=== PATIENT | male | born 1960 | race Caucasian/White ===

== ENCOUNTER 2024-06-24 11:12 | Inpatient (IN) | payer MEDICAID ==
[~2024-06-24] VITALS: Ht 165.1 cm; Wt 81.6 kg
[2024-06-24 12:48] LABS: BASOPHILS # (AUTO) 0.1 K/uL (0.0-0.2); BASOPHILS % (AUTO) 0.8 % (0.0-2.0); EOSINOPHILS # (AUTO) 0.2 K/uL (0.0-0.7); EOSINOPHILS % (AUTO) 2.3 % (0.0-6.0); HEMATOCRIT 42 % (39-51); HEMOGLOBIN 14.3 g/dL (13.5-17.5); LYMPHOCYTES % (AUTO) 19.1 % (20.0-44.0); MEAN CORPUSCULAR HEMOGLOBIN 31 PG (26.0-33.0); MEAN CORPUSCULAR HGB CONC 34 g/dl (31.0-36.0); MEAN CORPUSCULAR VOLUME 90 fL (80-96); MONOCYTES # (AUTO) 0.8 K/uL (0.1-1.30); MONOCYTES % (AUTO) 7.7 % (2.0-12.0); NEUTROPHILS # (AUTO) 7.5 K/uL (1.8-8.9); NEUTROPHILS % (AUTO) 70.1 % (43.0-81.0); PLATELET COUNT (AUTO) 504 K/uL (150-450); RED BLOOD CELL COUNT(AUTO) 4.63 MIL/uL (4.5-6.0); RED CELL DISTRIBUTION WIDTH 13.6 % (11.5-15.0); WHITE BLOOD COUNT (AUTO) 10.7 K/uL (4.3-11.0)
[2024-06-24 13:06] LABS: CARBON DIOXIDE 25 mmol/L (21-32); CHLORIDE 99 mmol/L (98-107); CREATININE 1.3 mg/dL (0.6-1.3); GLUCOSE 103 mg/dL (74-106); POTASSIUM 3.9 mmol/L (3.5-5.1); SODIUM SERUM 135 mmol/L (136-145); UREA NITROGEN, BLOOD 21 mg/dL (7-18)
[2024-06-24 13:12] LABS: ALANINE AMINOTRANSFERASE 21 U/L (12-78); ALBUMIN 3.6 g/dL (3.4-5.0); ALKALINE PHOSPHATASE 111 U/L (46-116); ASPARTATE AMINOTRANSFERASE 21 U/L (15-37); BILIRUBIN,DIRECT 0.2 mg/dL (0.0-0.2); BILIRUBIN,TOTAL 0.9 mg/dL (0.2-1.0); TOTAL PROTEIN, SERUM 7.5 g/dL (6.4-8.2)
[2024-06-24 13:13] LABS: ACETAMINOPHEN <10 ug/ml (10-30); ALCOHOL, BLOOD < 3 mg/dL (0-10); SALICYLATE 0.8 mg/dL (2.8-20.0)
[2024-06-24] MEDS ORDERED: LORA-258 PO (14:04)
[2024-06-24] MEDS ORDERED: MAGN400O6 PO (14:04)
[2024-06-24] MEDS ORDERED: ATOR80TA PO (14:04)
[2024-06-24] MEDS ORDERED: DOCU100T2 PO (14:04)
[2024-06-24] MEDS ORDERED: TYL2T PO (14:04)
[2024-06-24] MEDS ORDERED: ACET-2030 PO (14:04)
[2024-06-24] MEDS ORDERED: AMLO5TAB4 PO (14:04)
[2024-06-24] MEDS ORDERED: ASPI-1169 PO (14:04)
[2024-06-24 14:27] LABS: APPEARANCE,URINE SLIGHTLY CLOUDY (CLEAR); BILIRUBIN,URINE NEGATIVE (NEGATIVE); BLOOD, URINE 1+ Ery/uL (NEGATIVE); COLOR,URINE YELLOW (YELLOW); KETONES,URINE NEGATIVE (NEGATIVE); LEUKOCYTE ESTERASE ,URINE NEGATIVE (NEGATIVE); NITRITE, URINE POSITIVE (NEGATIVE); PROTEIN,URINE NEGATIVE (NEGATIVE); UGLUCOSE NEGATIVE (NEGATIVE); UROBILINOGEN,URINE 0.2 EU/dL (0.2)
[2024-06-24 14:38] LABS: ADD URINE CULTURE YES; BACTERIA,URINE 2+ /HPF (None Seen); SQUAMOUS EPITHELIAL CELL,UR 0-2 /HPF (None Seen)
[2024-06-24 14:51] LABS: AMPHETAMINE, URINE NEGATIVE (NEGATIVE); BARBITURATE, URINE NEGATIVE (NEGATIVE); BENZODIAZEPINE, URINE NEGATIVE (NEGATIVE); COCCAINE, URINE NEGATIVE (NEGATIVE); OPIATE, URINE NEGATIVE (NEGATIVE); PHENCYCLIDINE SCREEN,URINE NEGATIVE (NEGATIVE)
[2024-06-24 14:53] LABS: CANNABINOID, URINE POSITIVE (NEGATIVE)
[2024-06-24] MEDS ORDERED: CEFTRIAXONE 1 G in IV D5W 50 ML IV ONE (15:00)
[2024-06-24] MEDS ORDERED: CIPROFLOXACIN HCL 250 MG TABLET ONE (15:26)
[2024-06-24] MEDS: CIPROFLOXACIN HCL 250 MG TABLET PO ONE (15:29)
[2024-06-24 21:00] VITALS: BP 150/100; TEMP 98.4; O2SAT 96
[2024-06-24] MEDS ORDERED: MAG HYDROX/AL HYDROX/SIMETH 30 ML UDC PO PRN (21:00)
[2024-06-24] MEDS ORDERED: MAGNESIUM HYDROXIDE 30 ML UDC PO PRN (21:00)
[2024-06-24] MEDS: BLOOD SUGAR DIAGNOSTIC 1 EACH STRIP IN ONE (21:46)
[2024-06-24] MEDS: ATORVASTATIN 40 MG TABLET PO SCH (21:53)
[2024-06-24] MEDS: ZOLPIDEM TARTRATE 5 MG TABLET PO PRN (21:53)
[2024-06-24] MEDS ORDERED: Z GUARD REMEDY 4 OZ OINT TP PRN (22:30)
[2024-06-25] MEDS: CIPROFLOXACIN HCL 250 MG TABLET PO SCH (03:39)
[2024-06-25] MEDS: ASPIRIN 81 MG TAB.CHEW PO SCH (08:51)
[2024-06-25] MEDS: LEVOTHYROXINE SODIUM 25 MCG TABLET PO SCH (08:51)
[2024-06-25] MEDS: DOCUSATE SODIUM 100 MG CAPSULE PO SCH (08:51)
[2024-06-25] MEDS: AMLODIPINE BESYLATE 5 MG TABLET PO SCH (08:51)
[2024-06-25] MEDS: DIVALPROEX SODIUM 125 MG TABLET.DR PO SCH (14:29)
[2024-06-25 16:00] VITALS: BP 114/74; TEMP 98.6; O2SAT 98
[2024-06-25 20:28] VITALS: BP 154/88; TEMP 98.6; O2SAT 98
[2024-06-26 07:59] LABS: CALCIUM, SERUM 8.6 mg/dL (8.5-10.1); CREATININE 1.2 mg/dL (0.6-1.3)
[2024-06-26 08:00] VITALS: BP 139/98; TEMP 97.8; O2SAT 98
[2024-06-26 08:17] LABS: BASOPHILS % (AUTO) 0.7 % (0.0-2.0); EOSINOPHILS # (AUTO) 0.3 K/uL (0.0-0.7); EOSINOPHILS % (AUTO) 4.6 % (0.0-6.0); HEMATOCRIT 39 % (39-51); HEMOGLOBIN 13.4 g/dL (13.5-17.5); LYMPHOCYTES # (AUTO) 1.7 K/uL (0.8-4.8); LYMPHOCYTES % (AUTO) 23.3 % (20.0-44.0); MEAN CORPUSCULAR HEMOGLOBIN 31 PG (26.0-33.0); MEAN CORPUSCULAR HGB CONC 35 g/dl (31.0-36.0); MEAN CORPUSCULAR VOLUME 90 fL (80-96); MONOCYTES # (AUTO) 0.5 K/uL (0.1-1.30); MONOCYTES % (AUTO) 7.4 % (2.0-12.0); NEUTROPHILS # (AUTO) 4.7 K/uL (1.8-8.9); PLATELET COUNT (AUTO) 429 K/uL (150-450); RED BLOOD CELL COUNT(AUTO) 4.32 MIL/uL (4.5-6.0); RED CELL DISTRIBUTION WIDTH 13.4 % (11.5-15.0); WHITE BLOOD COUNT (AUTO) 7.4 K/uL (4.3-11.0)
[2024-06-26] MEDS: DIVALPROEX SODIUM 125 MG TABLET.DR PO SCH (13:23)
[2024-06-26 16:00] VITALS: BP 155/98; TEMP 98.6; O2SAT 97
[2024-06-26 20:40] VITALS: TEMP 98.6; O2SAT 97
[2024-06-26] MEDS: ACETAMINOPHEN 325 MG TABLET PO PRN (20:58)
[2024-06-26 21:30] VITALS: BP 145/98; TEMP 97; O2SAT 97
[2024-06-27 08:00] VITALS: BP 148/90; TEMP 98.7; O2SAT 98
[2024-06-27] MEDS: DIVALPROEX SODIUM 125 MG TABLET.DR PO SCH (13:23)
[2024-06-27 16:00] VITALS: BP 145/97; TEMP 98.7; O2SAT 96
[2024-06-27 20:18] VITALS: BP 162/106; TEMP 98.4; O2SAT 98
[2024-06-27] MEDS: CLONIDINE HCL 0.1 MG TABLET PO PRN (20:31)
[2024-06-27] MEDS: DIVALPROEX SODIUM 250 MG TABLET.DR PO SCH (20:31)
[2024-06-28 08:00] VITALS: BP 132/95; TEMP 98.6; O2SAT 98
[2024-06-28] MEDS: HYDROCHLOROTHIAZIDE 25 MG TABLET PO SCH (09:56)
[2024-06-28 16:00] VITALS: BP 153/88; TEMP 98.7; O2SAT 99
[2024-06-28] MEDS: QUETIAPINE FUMARATE 25 MG TABLET PO SCH (16:19)
[2024-06-28 20:12] VITALS: BP 154/99; TEMP 98.6; O2SAT 97
[2024-06-29 07:43] LABS: BASOPHILS # (AUTO) 0.1 K/uL (0.0-0.2); BASOPHILS % (AUTO) 0.7 % (0.0-2.0); EOSINOPHILS # (AUTO) 0.4 K/uL (0.0-0.7); EOSINOPHILS % (AUTO) 4.9 % (0.0-6.0); HEMATOCRIT 39 % (39-51); HEMOGLOBIN 13.4 g/dL (13.5-17.5); LYMPHOCYTES # (AUTO) 1.8 K/uL (0.8-4.8); MEAN CORPUSCULAR HEMOGLOBIN 31 PG (26.0-33.0); MEAN CORPUSCULAR HGB CONC 34 g/dl (31.0-36.0); MEAN CORPUSCULAR VOLUME 90 fL (80-96); MONOCYTES # (AUTO) 0.8 K/uL (0.1-1.30); MONOCYTES % (AUTO) 9.6 % (2.0-12.0); NEUTROPHILS # (AUTO) 4.9 K/uL (1.8-8.9); NEUTROPHILS % (AUTO) 61.8 % (43.0-81.0); PLATELET COUNT (AUTO) 409 K/uL (150-450); RED BLOOD CELL COUNT(AUTO) 4.34 MIL/uL (4.5-6.0); RED CELL DISTRIBUTION WIDTH 13.7 % (11.5-15.0); WHITE BLOOD COUNT (AUTO) 7.9 K/uL (4.3-11.0)
[2024-06-29 08:00] VITALS: BP 137/93; TEMP 98.6; O2SAT 98
[2024-06-29 08:11] LABS: CALCIUM, SERUM 8.8 mg/dL (8.5-10.1); CREATININE 1.2 mg/dL (0.6-1.3); MAGNESIUM 2.2 mg/dL (1.8-2.4); PHOSPHORUS 4.2 mg/dL (2.5-4.9); POTASSIUM 4.2 mmol/L (3.5-5.1)
[2024-06-29] MEDS: MEMANTINE HCL 5 MG TABLET PO SCH (12:30)
[2024-06-29 16:00] VITALS: BP 128/90; TEMP 98.7; O2SAT 98
[2024-06-29 20:11] VITALS: BP 106/85; TEMP 98.6; O2SAT 97
[2024-06-30 08:00] VITALS: BP 142/93; TEMP 97.7; O2SAT 95
[2024-06-30 16:00] VITALS: BP 155/90; TEMP 98.6; O2SAT 100
[2024-06-30 20:00] VITALS: BP 146/98; TEMP 98.3; O2SAT 98
[2024-07-01 08:00] VITALS: BP 128/95; TEMP 97.8; O2SAT 95
[2024-07-01] MEDS: AMLODIPINE BESYLATE 5 MG TABLET PO SCH (08:59)
[2024-07-01] MEDS: NEOMY SULF/BACITRAC ZN/POLY 15 GM TUBE TP SCH (13:41)
[2024-07-01] MEDS: UREA 10% -AHA 4% CREAM 57 GM TUBE TP SCH (13:41)
[2024-07-01 16:11] VITALS: BP_SYST 115; BP_SYST 145; BP_DIAS 84; BP_DIAS 94; TEMP 97.8; TEMP 98.6; O2SAT 98
[2024-07-01 20:00] VITALS: BP 152/92; TEMP 98.3; O2SAT 97
[2024-07-01] MEDS: DONEPEZIL 5 MG TABLET PO SCH (21:32)
[2024-07-02 08:00] VITALS: BP 141/95; TEMP 97.8; O2SAT 98
[2024-07-02 16:00] VITALS: BP 119/87; TEMP 98.1; O2SAT 97
[2024-07-02 21:32] VITALS: BP 143/88; TEMP 98.1; O2SAT 98
[2024-07-03] MEDS: ZOLPIDEM TARTRATE 5 MG TABLET PO PRN (01:46)
[2024-07-03 08:00] VITALS: BP 153/98; TEMP 97.8; O2SAT 96
[2024-07-03 16:00] VITALS: BP 130/96; TEMP 97.8; O2SAT 97
[2024-07-03 20:28] VITALS: BP 140/90; TEMP 97.9; O2SAT 97
[2024-07-04 08:00] VITALS: BP 132/97; TEMP 98.8; O2SAT 98
[2024-07-04 08:14] VITALS: BP 132/97
== END 2024-07-04 14:40 | DRG 753 ==
LOC: ER 11:30 → GPS 19:59
PROVIDERS: ADMIT Psychiatry & Neurology Psychiatry; ATTEND Nurse Practitioner Family
DX: F31.9 Bipolar disorder, unspecified (principal); G93.41 Metabolic encephalopathy; E87.1 Hypo-osmolality and hyponatremia; A03.9 Shigellosis, unspecified; B35.3 Tinea pedis; F12.10 Cannabis abuse, uncomplicated; E66.9 Obesity, unspecified; L85.3 Xerosis cutis; S61.412D Laceration without foreign body of left hand, subsequent encounter; W22.01XD Walked into wall, subsequent encounter; E78.5 Hyperlipidemia, unspecified; F20.9 Schizophrenia, unspecified; Z68.30 Body mass index [BMI] 30.0-30.9, adult; N39.0 Urinary tract infection, site not specified; Z79.82 Long term (current) use of aspirin; Z79.899 Other long term (current) drug therapy; Z86.73 Personal history of transient ischemic attack (TIA), and cerebral infarction without residual deficits; Z87.891 Personal history of nicotine dependence; E03.9 Hypothyroidism, unspecified; I10 Essential (primary) hypertension; R73.9 Hyperglycemia, unspecified; M62.81 Muscle weakness (generalized); R79.89 Other specified abnormal findings of blood chemistry; R41.9 Unspecified symptoms and signs involving cognitive functions and awareness
CPT/HCPCS: 36415; 70450-TC; 73130-TC; 80048-TC; 80061-TC; 80076-TC; 80164-TC; 81001; 82962-TC; 83735-TC; 84100-TC; 84439-TC; 84443-TC; 84481; 84484-TC; 85025-TC; 87040-TC; 87086-TC; 97110-TC; 97112-TC; 97116-TC; 97530-TC; 98960; G0480; J0696; J7060

== ENCOUNTER 2024-07-17 21:28 | Inpatient (IN) | payer MEDICAID, OTHER ==
[~2024-07-17] VITALS: Ht 180.3 cm; Wt 79.4 kg
[~2024-07-17 21:28] MED LIST: ACET-2030 PO; AMLO5TAB4 PO; ASPI-1169 PO; ATOR80TA PO; DOCU100T2 PO; LORA-258 PO; MAGN400O6 PO; TYL2T PO
[2024-07-17 22:34] LABS: BASOPHILS # (AUTO) 0.1 K/uL (0.0-0.2); BASOPHILS % (AUTO) 0.7 % (0.0-2.0); EOSINOPHILS # (AUTO) 0.3 K/uL (0.0-0.7); EOSINOPHILS % (AUTO) 4.1 % (0.0-6.0); HEMATOCRIT 38 % (39-51); HEMOGLOBIN 13.3 g/dL (13.5-17.5); LYMPHOCYTES # (AUTO) 1.7 K/uL (0.8-4.8); LYMPHOCYTES % (AUTO) 19.6 % (20.0-44.0); MEAN CORPUSCULAR HEMOGLOBIN 31 PG (26.0-33.0); MEAN CORPUSCULAR HGB CONC 35 g/dl (31.0-36.0); MEAN CORPUSCULAR VOLUME 88 fL (80-96); MONOCYTES % (AUTO) 11.9 % (2.0-12.0); NEUTROPHILS # (AUTO) 5.5 K/uL (1.8-8.9); NEUTROPHILS % (AUTO) 63.7 % (43.0-81.0); PLATELET COUNT (AUTO) 432 K/uL (150-450); RED BLOOD CELL COUNT(AUTO) 4.33 MIL/uL (4.5-6.0); RED CELL DISTRIBUTION WIDTH 13.3 % (11.5-15.0); WHITE BLOOD COUNT (AUTO) 8.6 K/uL (4.3-11.0)
[2024-07-17 22:51] LABS: ALANINE AMINOTRANSFERASE 19 U/L (12-78); ALBUMIN 3.5 g/dL (3.4-5.0); ALCOHOL, BLOOD < 3 mg/dL (0-10); ALKALINE PHOSPHATASE 103 U/L (46-116); ASPARTATE AMINOTRANSFERASE 21 U/L (15-37); BILIRUBIN,DIRECT 0.1 mg/dL (0.0-0.2); BILIRUBIN,TOTAL 0.5 mg/dL (0.2-1.0); CALCIUM, SERUM 9.6 mg/dL (8.5-10.1); CARBON DIOXIDE 32 mmol/L (21-32); CHLORIDE 99 mmol/L (98-107); CREATININE 1.5 mg/dL (0.6-1.3); GLUCOSE 106 mg/dL (74-106); POTASSIUM 3.9 mmol/L (3.5-5.1); SODIUM SERUM 138 mmol/L (136-145); TOTAL PROTEIN, SERUM 7.5 g/dL (6.4-8.2); UREA NITROGEN, BLOOD 28 mg/dL (7-18)
[2024-07-17] MEDS: QUETIAPINE FUMARATE 25 MG TABLET PO SCH (23:00)
[2024-07-17 23:13] LABS: ACETAMINOPHEN <10 ug/ml (10-30); SALICYLATE 1.7 mg/dL (2.8-20.0)
[2024-07-17] MEDS ORDERED: QUETIAPINE FUMARATE 25 MG TABLET ONE (23:30)
[2024-07-17] MEDS ORDERED: DIVA250T47 PO (23:53)
[2024-07-17] MEDS ORDERED: ZOLP5TAB2 PO (23:53)
[2024-07-17] MEDS ORDERED: MEMA10TA PO (23:53)
[2024-07-17] MEDS ORDERED: LEVO50TA8 PO (23:53)
[2024-07-17] MEDS ORDERED: DONE5TAB34 PO (23:53)
[2024-07-17] MEDS ORDERED: QUET25TA PO (23:53)
[2024-07-17] MEDS ORDERED: HYDR25TA4 PO (23:53)
[2024-07-18 00:02] LABS: APPEARANCE,URINE CLEAR (CLEAR); BILIRUBIN,URINE NEGATIVE (NEGATIVE); COLOR,URINE YELLOW (YELLOW); KETONES,URINE NEGATIVE (NEGATIVE); LEUKOCYTE ESTERASE ,URINE NEGATIVE (NEGATIVE); NITRITE, URINE NEGATIVE (NEGATIVE); PH,URINE 5.5 (5.0-8.0); PROTEIN,URINE NEGATIVE (NEGATIVE); UGLUCOSE NEGATIVE (NEGATIVE); UROBILINOGEN,URINE 0.2 EU/dL (0.2)
[2024-07-18 00:14] LABS: AMPHETAMINE, URINE NEGATIVE (NEGATIVE); BARBITURATE, URINE NEGATIVE (NEGATIVE); BENZODIAZEPINE, URINE NEGATIVE (NEGATIVE); CANNABINOID, URINE NEGATIVE (NEGATIVE); COCCAINE, URINE NEGATIVE (NEGATIVE); OPIATE, URINE NEGATIVE (NEGATIVE); PHENCYCLIDINE SCREEN,URINE NEGATIVE (NEGATIVE)
[2024-07-18 00:30] LABS: ADD URINE CULTURE NO; BACTERIA,URINE Rare /HPF (None Seen); BLOOD, URINE TRACE Ery/uL (NEGATIVE); WBC,URINE NONE SEEN /HPF (0-3)
[2024-07-18 00:31] LABS: SQUAMOUS EPITHELIAL CELL,UR Rare /HPF (None Seen)
[2024-07-18 02:00] VITALS: BP 149/95; TEMP 97.9; O2SAT 98
[2024-07-18] MEDS ORDERED: ACETAMINOPHEN 325 MG TABLET PO PRN ×2 (02:30→09:00)
[2024-07-18] MEDS ORDERED: MAGNESIUM HYDROXIDE 30 ML UDC PO PRN (02:30)
[2024-07-18] MEDS ORDERED: MAG HYDROX/AL HYDROX/SIMETH 30 ML UDC PO PRN (02:30)
[2024-07-18] MEDS: BLOOD SUGAR DIAGNOSTIC 1 EACH STRIP IN ONE (02:55)
[2024-07-18 08:00] VITALS: BP 139/94; TEMP 98.1; O2SAT 100
[2024-07-18 08:00] LABS: CALCIUM, SERUM 9.3 mg/dL (8.5-10.1); CREATININE 1.4 mg/dL (0.6-1.3); POTASSIUM 3.6 mmol/L (3.5-5.1)
[2024-07-18 08:33] LABS: CHOLESTEROL 118 mg/dL (<200); HDL CHOLESTEROL 40 mg/dL (40-60); LDL 74 mg/dL (0-99); TRIGLYCERIDES 64 mg/dL (30-150)
[2024-07-18] MEDS ORDERED: UREA85CR23 TP (08:51)
[2024-07-18] MEDS ORDERED: DIVA-76 PO (08:51)
[2024-07-18] MEDS ORDERED: PETR71OI2 TP (08:51)
[2024-07-18] MEDS ORDERED: NEOM1OIN10 TP (08:51)
[2024-07-18] MEDS ORDERED: ACETAMINOPHEN ES 500 MG TABLET PO PRN (09:00)
[2024-07-18] MEDS: LEVOTHYROXINE SODIUM 50 MCG TABLET PO SCH (09:39)
[2024-07-18] MEDS: AMLODIPINE BESYLATE 5 MG TABLET PO SCH (09:40)
[2024-07-18] MEDS: ASPIRIN 81 MG TAB.CHEW PO SCH (09:40)
[2024-07-18] MEDS: HYDROCHLOROTHIAZIDE 25 MG TABLET PO SCH (09:40)
[2024-07-18] MEDS: DOCUSATE SODIUM 100 MG CAPSULE PO SCH (09:42)
[2024-07-18] MEDS: DIVALPROEX SODIUM 250 MG TABLET.DR PO SCH (14:53)
[2024-07-18 16:00] VITALS: BP 134/95; TEMP 98.4; O2SAT 97
[2024-07-18] MEDS: risperiDONE 0.25 MG TABLET PO SCH (21:20)
[2024-07-18] MEDS: DONEPEZIL 5 MG TABLET PO SCH (21:20)
[2024-07-18] MEDS: ATORVASTATIN 40 MG TABLET PO SCH (21:20)
[2024-07-18 22:27] VITALS: BP 129/77; TEMP 98.4; O2SAT 97
[2024-07-19 07:41] LABS: BILIRUBIN,TOTAL 0.5 mg/dL (0.2-1.0); CALCIUM, SERUM 8.3 mg/dL (8.5-10.1); CREATININE 1.3 mg/dL (0.6-1.3); TOTAL PROTEIN, SERUM 6.6 g/dL (6.4-8.2)
[2024-07-19 08:00] VITALS: BP 136/91; TEMP 98.6; O2SAT 97
[2024-07-19 16:00] VITALS: BP 131/90; TEMP 98.1; O2SAT 98
[2024-07-19] MEDS: MUPIROCIN OINT 2% 22 GM TUBE NS SCH (17:59)
[2024-07-19 23:00] VITALS: BP 149/95; TEMP 98.2; O2SAT 98
[2024-07-19] MEDS: ZOLPIDEM TARTRATE 5 MG TABLET PO PRN (23:37)
[2024-07-20 08:00] VITALS: BP 124/89; TEMP 98.7; O2SAT 97
[2024-07-20 16:00] VITALS: BP 143/97; TEMP 97.9; O2SAT 99
[2024-07-20 20:21] VITALS: BP 126/86; TEMP 98.6; O2SAT 98
[2024-07-20] MEDS: risperiDONE 0.25 MG TABLET PO SCH (21:17)
[2024-07-21 08:00] VITALS: BP 97/69; TEMP 98; O2SAT 100
[2024-07-21 16:00] VITALS: BP 128/86; TEMP 98; O2SAT 97
[2024-07-21 20:33] VITALS: BP 116/78; TEMP 98.2; O2SAT 96
[2024-07-22] MEDS: ZOLPIDEM TARTRATE 5 MG TABLET PO PRN (00:22)
[2024-07-22 08:00] VITALS: BP 110/77; TEMP 98.7; O2SAT 100
[2024-07-22] MEDS: DIVALPROEX SODIUM 250 MG TABLET.DR PO ONE (14:29)
[2024-07-22 16:00] VITALS: BP 127/81; TEMP 97.7; O2SAT 99
[2024-07-22 20:00] VITALS: BP 123/86; TEMP 98.4; O2SAT 97
[2024-07-22] MEDS: DIVALPROEX SODIUM 250 MG TABLET.DR PO SCH (21:23)
[2024-07-23 08:00] VITALS: BP 112/81; TEMP 97.9; O2SAT 100
[2024-07-23 16:00] VITALS: BP 127/74; TEMP 98; O2SAT 98
[2024-07-23] MEDS ORDERED: risperiDONE 0.25 MG TABLET PO ONE (21:23)
[2024-07-23] MEDS: risperiDONE 0.25 MG TABLET PO SCH (21:37)
[2024-07-24 08:00] VITALS: BP 120/71; TEMP 97.8; O2SAT 96
[2024-07-24] MEDS: risperiDONE 1 MG TABLET PO SCH (09:09)
[2024-07-24 16:00] VITALS: BP 116/76; TEMP 97.6; O2SAT 99
[2024-07-24 20:00] VITALS: BP 114/69; TEMP 97.9; O2SAT 97
[2024-07-25 00:30] VITALS: BP 114/69; TEMP 97; O2SAT 100
[2024-07-25 08:00] VITALS: BP 127/76; TEMP 97.9; O2SAT 98
[2024-07-25 08:32] VITALS: BP 127/76
== END 2024-07-25 13:50 | DRG 753 ==
LOC: ER 21:29 → GPS 07-18 01:34
PROVIDERS: ADMIT Psychiatry & Neurology Psychiatry; ATTEND Nurse Practitioner Acute Care
DX: F31.5 Bipolar disorder, current episode depressed, severe, with psychotic features (principal); N17.0 Acute kidney failure with tubular necrosis; G93.49 Other encephalopathy; F29 Unspecified psychosis not due to a substance or known physiological condition; G40.909 Epilepsy, unspecified, not intractable, without status epilepticus; E03.9 Hypothyroidism, unspecified; E78.5 Hyperlipidemia, unspecified; G31.84 Mild cognitive impairment of uncertain or unknown etiology; Z73.6 Limitation of activities due to disability; R53.1 Weakness; R27.8 Other lack of coordination; Z91.81 History of falling; Z87.891 Personal history of nicotine dependence; F41.9 Anxiety disorder, unspecified; Z86.73 Personal history of transient ischemic attack (TIA), and cerebral infarction without residual deficits; Z79.899 Other long term (current) drug therapy; I12.9 Hypertensive chronic kidney disease with stage 1 through stage 4 chronic kidney disease, or unspecified chronic kidney disease; N18.9 Chronic kidney disease, unspecified; Z79.82 Long term (current) use of aspirin
CPT/HCPCS: 36415; 73130-TC; 80048-TC; 80053-TC; 80061-TC; 80076-TC; 80164-TC; 81001; 82962-TC; 85025-TC; 87081-TC; 97112-TC; 97116-TC; 97530-TC; 98960; G0480